=== PATIENT | female | born 1975 | race Caucasian/White ===

== ENCOUNTER 2019-02-04 16:23 | Inpatient (IN) | payer OTHER ==
[~2019-02-04] VITALS: Ht 149.9 cm; Wt 43.5 kg
[2019-02-04 16:26] VITALS: BP 81/45
[2019-02-04 17:22] LABS: HEMATOCRIT 39.4 % (37.0-47.0); HEMOGLOBIN 12.7 gm/dL (12.0-15.0); MCH 28.3 pg (26.0-34.0); MCHC 32.3 g/dL (28.0-37.0); MCV 87.6 fL (80.0-100.0); MPV 6.9 fl. (7.2-11.1); NUCLEATED RBCS 0 /100WBC; PLATELET COUNT* 338 thou/uL (150-400); RDW-CV 13.5 % (10.5-14.5); WBC 29.5 thou/uL (4.0-11.0)
[2019-02-04 17:37] LABS: ANION GAP 8 mmol/L (7-16); BUN 26 mg/dL (7-18); CHLORIDE 103 mmol/L (98-107); CO2 28 mmol/L (21-32); CREATININE 1.2 mg/dL (0.6-1.3); GLUCOSE 107 mg/dL (70-99); SODIUM 139 mmol/L (136-145); TROPONIN-I LEVEL <0.06 ng/mL (<0.06)
[2019-02-04 17:39] LABS: ALKALINE PHOSPHATASE 91 U/L (46-116); NT-PRO BRAIN NAT PEPTIDE 145 pg/mL (<300); SGOT 19 U/L (15-37); SGPT 14 U/L (30-65); TOTAL BILIRUBIN 0.3 mg/dL (<0.1-1.0); TOTAL PROTEIN 6.9 g/dL (6.4-8.2)
[2019-02-04 17:44] LABS: ACETAMINOPHEN 2 ug/mL (10-30); SALICYLATE < 2.8 mg/dL (2.8-20.0)
[2019-02-04 17:46] LABS: ALCOHOL < 10 mg/dL (<10)
[2019-02-04 17:52] LABS: ABSOLUTE LYMPHOCYTES 0.6 thou/uL (0.8-5.3); ABSOLUTE MONOCYTES 0.9 thou/uL (0.0-1.2)
[2019-02-04 17:53] LABS: PLATELET ESTIMATE ADEQUATE
[2019-02-04 18:18] LABS: INFLUENZA A ANTIGEN None Detected (None Detect); INFLUENZA B ANTIGEN None Detected (None Detect)
[2019-02-04 20:13] VITALS: BP 109/71
[2019-02-04 20:40] VITALS: BP 106/66
[2019-02-05] VITALS: BP 85/48
--- NOTE | 2019-02-05 03:28 | NUR ---
ASSUMED CARE OF PT FROM THE ER AT 2030. PT IS UNRESPONSIVE AND VERY SOMNOLENT. PT ALSO APPEARS VERY DEHYDRATED. PT GETTING NS AT 150 ML/HR. PT REQUIRING 2 LITERS O2. PT IS IN SINUS RYTHM ON THE TELEMETRY. PT IS RESTING COMFORTABLY IN BED. RESPIRATIONS ARE EVEN AND NONLABORED. WILL CONTINUE TO MONITOR PT.
[2019-02-05 04:00] VITALS: BP 147/56; BP 90/47
[2019-02-05 04:49] LABS: ABSOLUTE BASOPHILS 0.1 thou/uL (0.0-0.2); ABSOLUTE EOSINOPHILS 0.1 thou/uL (0.0-0.7); ABSOLUTE LYMPHOCYTES 0.7 thou/uL (0.8-5.3); BASOPHILS 0.3 %; EOSINOPHILS 0.2 %; HEMATOCRIT 35.5 % (37.0-47.0); HEMOGLOBIN 11.7 gm/dL (12.0-15.0); LYMPHOCYTES 2.3 %; MCH 28.9 pg (26.0-34.0); MCHC 32.9 g/dL (28.0-37.0); MCV 87.9 fL (80.0-100.0); MONOCYTES 6.6 %; MPV 7.4 fl. (7.2-11.1); NUCLEATED RBCS 0 /100WBC; PLATELET COUNT* 331 thou/uL (150-400); POLYS 90.6 %; RBC 4.04 mil/uL (4.20-5.00); RDW-CV 13.4 % (10.5-14.5); WBC 30.9 thou/uL (4.0-11.0)
[2019-02-05 05:16] LABS: CALCIUM 8.1 mg/dL (8.5-10.1); CREATININE 0.8 mg/dL (0.6-1.3); POTASSIUM 4.6 mmol/L (3.5-5.1)
--- NOTE | 2019-02-05 10:41 | EKG ---
[place] [address] ELECTROCARDIOGRAM REPORT Name: NEVILLE ANN Room: [address] IN [facility]#: [id number] Admission: 02/04/19 Attend Phys: Ankit Manuel MD Discharge: Date of : 71 Report #: [id number] THIS REPORT FOR: //name// [facility] ED Test Date: 2019-02-04 Test Time: 17:09:47 Pat Name: NEVILLE ANN Department: Room: [facility] Gender: F Director Of Women'S Services: LISBETH : 1975 Requested By: Duncan Mane Order Number: [id number] MD: Paxton Ramires Measurements Intervals [place] Rate: 81 P: 76 [place]: 137 QRS: 76 QRSD: 96 T: 7 QT: 382 QTc: 444 Interpretive Statements Sinus rhythm Borderline T wave abnormalities No previous ECG available for comparison Electronically Signed On 02-05-2019 10:40:59 CDT by Paxton Ramires [email or web address] <ELECTRONICALLY SIGNED> By: Paxton Ramires MD, [facility] 02/05/19 1040 08 08 Paxton Ramires MD, FACC /EPI
[2019-02-05 12:32] VITALS: BP 96/53
--- NOTE | 2019-02-05 15:31 | NUR ---
Pt was asleep when CM went to assess, will f/u later
[2019-02-05 16:32] VITALS: BP 101/57
[2019-02-05 19:45] VITALS: BP 118/60
[2019-02-05 20:55] LABS: URINE BILIRUBIN NEGATIVE (Negative); URINE BLOOD 3+ (Negative); URINE CLARITY CLEAR; URINE COLOR YELLOW; URINE GLUCOSE-RANDOM NEGATIVE (Negative); URINE KETONES TRACE (Negative); URINE LEUKOCYTES-REFLEX TRACE (Negative); URINE NITRITE-REFLEX NEGATIVE (Negative); URINE PROTEIN 1+ (Negative); URINE SPECIFIC GRAVITY >= 1.030 (1.005-1.030); URINE UROBILINOGEN 0.2 E.U./dl (0.2-1.0)
[2019-02-05 21:03] LABS: AMP/METHAMP POSITIVE (Negative); BARBITURATES Negative (Negative); BENZODIAZEPINES Negative (Negative); CASTS None Seen /LPF (None Seen); COCAINE Negative (Negative); METHADONE POSITIVE (Negative); OPIATES Negative (Negative); PCP Negative (Negative); SQUAMOUS >10 Many /LPF (0-3); THC Negative (Negative); URINE RBC 3-10 Few /HPF (0-2); URINE WBC-REFLEX 0-5 Rare /HPF (0-5)
[2019-02-05 21:04] LABS: CRYSTALS None Seen /LPF (None Seen)
[2019-02-06] VITALS: BP 104/62
[2019-02-06 04:00] VITALS: BP 112/63
--- NOTE | 2019-02-06 04:48 | NUR ---
PT CARE ASSUMED AT 1930. SAT MAINTAINED IN 3L NC. PT IS CONFUSED AND DROWSY. CALL LIGHT WITHIN REACH AND BED IN LOW POSITION. C/O CHEST PAIN WHILE COUGHING, DENIES PAIN MEDICATION. HOURLY ROUNDING DONE FOR PT SAFETY.
[2019-02-06 08:00] VITALS: BP 126/76
[2019-02-06 10:03] LABS: ABSOLUTE BASOPHILS 0.1 thou/uL (0.0-0.2); ABSOLUTE LYMPHOCYTES 0.6 thou/uL (0.8-5.3); ABSOLUTE NEUTROPHILS 25.2 thou/uL (1.6-8.1); BASOPHILS 0.3 %; EOSINOPHILS 0.1 %; HEMATOCRIT 35.7 % (37.0-47.0); HEMOGLOBIN 11.9 gm/dL (12.0-15.0); LYMPHOCYTES 2.1 %; MCH 28.7 pg (26.0-34.0); MCHC 33.3 g/dL (28.0-37.0); MCV 86.4 fL (80.0-100.0); MONOCYTES 7.1 %; NUCLEATED RBCS 0 /100WBC; PLATELET COUNT* 329 thou/uL (150-400); POLYS 90.4 %; RBC 4.13 mil/uL (4.20-5.00); RDW-CV 13.7 % (10.5-14.5); WBC 27.9 thou/uL (4.0-11.0)
[2019-02-06 10:23] LABS: CALCIUM 8.1 mg/dL (8.5-10.1); CREATININE 0.7 mg/dL (0.6-1.3); POTASSIUM 3.8 mmol/L (3.5-5.1); TOTAL BILIRUBIN 0.4 mg/dL (<0.1-1.0); TOTAL PROTEIN 5.7 g/dL (6.4-8.2)
[2019-02-06 12:00] VITALS: BP 100/63
--- NOTE | 2019-02-06 15:15 | NUR ---
ATTEMPTED TO SPEAK WITH PT. SHE WAS VERY LETHARGIC. O2 AT 10L/HFC. WOULD NOT OPEN EYES BUT BRIEFLY FOR CM. MOTHER AND 3 SISTERS AT BEDSIDE. THEY SAID SHE IS NOT USUALLY LIKE THIS. SHE IS NORMALLY INDEPENDENT. NO USE OF DME. SHE IS SELF EMPLOYED A CAREGIVER. LEFT PACKET FOR THE UNINSURED IN ROOM ON D.
[2019-02-06 16:00] VITALS: BP 99/64
--- NOTE | 2019-02-06 19:19 | NUR ---
TA RESTING IN BED. JANIENET HAS BEEN FEBRILE AT TIMES TODAY, WELL TREATED WITH TYLENOL. PAITNET HAS CONTINUED TO BE DROWSY TODAY BUT IS EASILY AROUSABLE. NEW ABX STARTED TODAY FOR FINDINGS ON CHEST XRAY AND CLINICAL PRESENTATION. HOURLY ROUNDING COMPLETED FOR PATIENT SAFETY.
[2019-02-06 19:50] VITALS: BP 96/50
[2019-02-07] VITALS: BP 94/59
[2019-02-07 04:00] VITALS: BP 98/60
--- NOTE | 2019-02-07 04:42 | NUR ---
PT CARE ASSUMED AT 1930. SAT MAINTAINED IN 7L HFC, CALL LIGHT WITHIN REACH AND BED IN LOW POSITION. PT IS CONFUSED AND DROWSY. DENIES PAIN AND SOB. C/O CHEST PAIN WITH COUGH. HOURLY ROUNDING DONE FOR PT SAFETY.
[2019-02-07 05:00] LABS: HEMOGLOBIN 12.3 gm/dL (12.0-15.0); MCH 28.4 pg (26.0-34.0); MCHC 33.2 g/dL (28.0-37.0); MCV 85.7 fL (80.0-100.0); MPV 7.3 fl. (7.2-11.1); NUCLEATED RBCS 0 /100WBC; PLATELET COUNT* 391 thou/uL (150-400); RBC 4.32 mil/uL (4.20-5.00); RDW-CV 13.1 % (10.5-14.5); WBC 30.8 thou/uL (4.0-11.0)
[2019-02-07 05:12] LABS: CALCIUM 7.8 mg/dL (8.5-10.1); CREATININE 0.8 mg/dL (0.6-1.3)
[2019-02-07 05:19] LABS: PREALBUMIN 5.7 mg/dL (18.0-35.7)
[2019-02-07 07:24] LABS: ABSOLUTE LYMPHOCYTES 1.8 thou/uL (0.8-5.3); ABSOLUTE MONOCYTES 3.4 thou/uL (0.0-1.2); ABSOLUTE NEUTROPHILS 25.6 thou/uL (1.6-8.1); PLATELET ESTIMATE ADEQUATE
[2019-02-07 08:00] VITALS: BP 113/64
[2019-02-07 12:00] VITALS: BP 98/59
--- NOTE | 2019-02-07 12:44 | NUR ---
PT A/O, DROWSY. TELE TRACKING NSR/TACH (100'S-130'S) AND VSS ON 4.5L. DENIES CP, SOA. TOLERATING 4.5L NC- ENCOURAGED IS USE. MULTIPLE FAMILY MEMBERS AT BEDSIDE. EDUCATED ON SAFETY AND PLAN OF CARE. PLEASE SEE ASSESSMENT FOR ADDITIONAL INFORMATION. WILL COTINUE TO MONITOR
[2019-02-07 16:00] VITALS: BP 97/61
[2019-02-07 19:10] VITALS: BP 102/62
--- NOTE | 2019-02-07 22:00 | NUR ---
ASSESSMENT COMPLETED XHARTED. TRACING ER-AT ON MONITOR. PT DENIES PAIN PT CURRENTLY ON 3LPM O2 WITH ADEQAUTE O2 SATS. PT INITIALLY FEBRILE AT START OF SHIFT. PRN TYLENOL GIVEN, TEMP TRANDING DOWN. PT UP TO BR WITH SBA, STEADY GAIT. HOURLY ROUNDING FOR SAFETY. CLWR.
[2019-02-08 00:05] VITALS: BP 90/55
[2019-02-08 03:30] VITALS: BP 93/56
[2019-02-08 05:27] LABS: ABSOLUTE BASOPHILS 0.1 thou/uL (0.0-0.2); ABSOLUTE EOSINOPHILS 0.4 thou/uL (0.0-0.7); ABSOLUTE LYMPHOCYTES 1.4 thou/uL (0.8-5.3); ABSOLUTE MONOCYTES 1.9 thou/uL (0.0-1.2); ABSOLUTE NEUTROPHILS 22.9 thou/uL (1.6-8.1); BASOPHILS 0.4 %; EOSINOPHILS 1.3 %; HEMATOCRIT 35.2 % (37.0-47.0); HEMOGLOBIN 11.7 gm/dL (12.0-15.0); LYMPHOCYTES 5.2 %; MCH 28.4 pg (26.0-34.0); MCHC 33.3 g/dL (28.0-37.0); MCV 85.4 fL (80.0-100.0); MPV 7.4 fl. (7.2-11.1); NUCLEATED RBCS 0 /100WBC; PLATELET COUNT* 440 thou/uL (150-400); POLYS 86.1 %; RBC 4.13 mil/uL (4.20-5.00); RDW-CV 13.5 % (10.5-14.5); WBC 26.6 thou/uL (4.0-11.0)
[2019-02-08 05:37] LABS: ALBUMIN 1.8 g/dL (3.4-5.0); CALCIUM 8.6 mg/dL (8.5-10.1); CREATININE 0.7 mg/dL (0.6-1.3); TOTAL BILIRUBIN 0.4 mg/dL (<0.1-1.0); TOTAL PROTEIN 5.8 g/dL (6.4-8.2)
--- NOTE | 2019-02-08 06:38 | NUR ---
PT REMAINS SR ON MONITOR. NO NEW C/O PAIN,N/V/D, SOA. PT WOULD REMOVE O2 THROUGH THE NIGHT O2 SATS ON RA 89-92%. PT CURRENTLY ON 1.5LPM WITH ADEQUATE O2 SATS. PT WAS ABLE TO HAVE A SMALL BM LAST EVENING.
--- NOTE | 2019-02-08 08:08 | CON ---
[address] [address] CONSULTATION Name: NEVILLE ANN Room: [address] IN .R.#: [id number] Admission: 02/04/19 Attend Phys: Ankit Manuel MD Discharge: Date of : 71 Report #: [id number] THIS REPORT FOR: //name// CC: Ankit Manuel [facility] physician/PCP DATE OF SERVICE: 02/07/2019 ATTENDING PHYSICIAN: Ankit Manuel M.D. REASON FOR EVALUATION: Pneumonitis. HISTORY OF PRESENT ILLNESS: Chart reviewed, the patient examined. This is a 43-year-old woman with history of polysubstance abuse, apparently sick for the last couple of weeks. She was found unresponsive, was treated with Narcan and did awaken. She was found to have temperature elevation to 101.3. She did complain of sore throat, congestion and some difficulty breathing. It is unclear if she had fevers prior to her admission. Apparently, she had some anorexia with poor p.o. intake. Denies significant gastrointestinal-related complaints. It is uncertain about her recent weight. On evaluation, she was found to have a positive drug screen for amphetamine, methamphetamine, and methadone for which she has been prescribed. Initial chest x-ray showed increased density in the right lung base, felt to be more consistent with atelectasis; however, repeat chest x-ray showed a right upper lobe perihilar consolidation and positive rapid strep. Urinalysis was unrevealing. Influenza antigen was negative. She has had markedly elevated white counts in the 30,000 range since admission. Empirically started on broad-spectrum antibiotic therapy including ceftriaxone, Zosyn, vancomycin. At this point, she is quite somnolent. I discussed in detail with the family in terms of additional history. ALLERGIES: None known. MEDICATIONS: Include vancomycin, Zosyn, ceftriaxone, pantoprazole, guaifenesin, enoxaparin, ipratropium and albuterol inhaler. PAST MEDICAL HISTORY: Previous . SOCIAL HISTORY: As described above. Does smoke cigarettes, pretty regular ethanol. FAMILY HISTORY: Noncontributory. REVIEW OF SYSTEMS: Not reliably obtained. PHYSICAL EXAMINATION: [place] [address] CONSULTATION Name: NEVILLE ANN Room: [address]#: [id number] Admission: 02/04/19 Attend Phys: Ankit Manuel MD Discharge: Date of : 71 Report #: [id number] GENERAL: She appears somewhat chronically ill, undernourished, decreased responsiveness, mild to moderate distress. VITAL SIGNS: T-max over 24 hours 101.3, more recently 98.6, pulse 111, respirations 18, blood pressure 113/64. SKIN: Warm, dry. HEENT: Normocephalic. She does open her eyes, appears to have intact extraocular muscles. NECK: Supple. LUNGS: Diminished breath sounds. HEART: Regular, tachycardic. I do not appreciate murmur. ABDOMEN: Soft, nontender, nondistended. EXTREMITIES: No cyanosis, no rashes. GENITOURINARY: Deferred. RECTAL: Deferred. LABORATORY DATA: Initial lactic acid 2.0. Electrolytes: Sodium 139, potassium 4.0, chloride 103, bicarbonate is 28, BUN and creatinine 26 and 1.2, glucose of 107, albumin 3.0, total protein 6.9. LFTs unremarkable. CBC: White count of 29.5, initially H and H 12.7 and 39.4, platelets of 338 and a neutrophilia of 28,000. Positive rapid strep. Influenza antigen for A and B was negative. Urinalysis, 0-5 white cells. Blood cultures are sterile thus far. ASSESSMENT: Pneumonitis in the setting of likely aspiration we know. Definitively she has had group A strep in her throat and I would be concerned about that, and with the persistently high elevated white count there is a question of toxin .net architect. We will check CT of the chest. We will discontinue the Zosyn at this point. Discussed in detail with the family. <ELECTRONICALLY SIGNED> By: Francisco Javier Trujillo MD 02/08/19 0808 [id number] Trujillo MD /nt
[2019-02-08 08:30] VITALS: BP 106/65
[2019-02-08 11:56] VITALS: BP 97/59
[2019-02-08 16:00] VITALS: BP 95/56
--- NOTE | 2019-02-08 19:38 | NUR ---
PT A/O, LETHARGIC. TELE TRACKING NSR AND ALL VSS ON 1.5L. DENIES CP, SOA. ENCOURAGED/INSTRUCTED ON USE OF IS. EDUCATED ON SAFETY AND PLAN OF CARE. PLEASE SEE ASSESSMENT FOR ADDITIONAL INFORMATION. WILL CONTINUE TO MONITOR
[2019-02-08 20:00] VITALS: BP 90/49
[2019-02-09] VITALS: BP 96/63
[2019-02-09 04:44] VITALS: BP 88/50
--- NOTE | 2019-02-09 05:09 | NUR ---
PT LETHARGIC AT TIMES. EASILY AROUSED. MOTHER AT BEDSIDE. UP TO BR WITH STD BY ASSIST. TEMP AT SHIFT CHG 100.6. TYLENOL GIVEN. USING IS. O2 AT 1 LITER. SR. WILL CONTINUE TO MONITOR.
[2019-02-09 05:10] LABS: ABSOLUTE BASOPHILS 0.1 thou/uL (0.0-0.2); ABSOLUTE EOSINOPHILS 0.3 thou/uL (0.0-0.7); ABSOLUTE LYMPHOCYTES 1.3 thou/uL (0.8-5.3); ABSOLUTE MONOCYTES 1.1 thou/uL (0.0-1.2); ABSOLUTE NEUTROPHILS 12.9 thou/uL (1.6-8.1); BASOPHILS 0.3 %; EOSINOPHILS 2.2 %; HEMATOCRIT 33.1 % (37.0-47.0); HEMOGLOBIN 11.1 gm/dL (12.0-15.0); LYMPHOCYTES 8.3 %; MCH 28.5 pg (26.0-34.0); MCHC 33.5 g/dL (28.0-37.0); MCV 85.1 fL (80.0-100.0); MONOCYTES 7.2 %; NUCLEATED RBCS 0 /100WBC; PLATELET COUNT* 465 thou/uL (150-400); RBC 3.88 mil/uL (4.20-5.00); RDW-CV 13.3 % (10.5-14.5); WBC 15.8 thou/uL (4.0-11.0)
[2019-02-09 05:50] LABS: ALBUMIN 1.8 g/dL (3.4-5.0); CREATININE 0.6 mg/dL (0.6-1.3); POTASSIUM 3.5 mmol/L (3.5-5.1); PREALBUMIN 6.4 mg/dL (18.0-35.7); TOTAL BILIRUBIN 0.4 mg/dL (<0.1-1.0); TOTAL PROTEIN 6.1 g/dL (6.4-8.2)
[2019-02-09 08:00] VITALS: BP 99/66
[2019-02-09 12:35] VITALS: BP 104/68
--- NOTE | 2019-02-09 12:52 | NUR ---
ASSUMED PT CARE AT 0730, LYING IN BED. AOX4, SBA, 02 SAT 98% 1L NC. PT FAMILY IN THE BEDSIDE. PT COMPLAINS OF SORE THROAT. PT GOAL IS SAFETY, EFFECTIVE BREATHING, ISOLATION PRECAUTION. 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 WILL CONTINUE TO MONITOR.
[2019-02-09 16:00] VITALS: BP 91/55
--- NOTE | 2019-02-09 18:54 | NUR ---
PT AOX4, 02 SAT AT 90'S 1L NC, SBA. PT ON CONTACT ISOLATION. PT FAMILY AT BEDSIDE . PT COMPLAINS OF SORE THROAT, COUGHING, PT USE INCENTIVE SPIROMETRY, PT FEBRILE AT TIMES, WBC ELEVATED. MEDS GIVEN PER JAN. REGULAR DIET, LAST BM 02/07/19. 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 CALL LIGHT AND BELONGINGS WITHIN REACH. HOURLY ROUNDING, REPOSITION SELF, WILL CONTINUE TO MONITOR.
--- NOTE | 2019-02-09 19:56 | NUR ---
I HAVE REVIEWED AND AGREE WITH THE CHARTING OF ASAD ESQUIVEL ON 02/09/19
[2019-02-09 20:00] VITALS: BP 100/63
[2019-02-10] VITALS: BP 95/58
[2019-02-10 04:00] VITALS: BP 82/44
[2019-02-10 05:27] LABS: ABSOLUTE EOSINOPHILS 0.3 thou/uL (0.0-0.7); ABSOLUTE LYMPHOCYTES 1.6 thou/uL (0.8-5.3); ABSOLUTE MONOCYTES 1.2 thou/uL (0.0-1.2); ABSOLUTE NEUTROPHILS 11.5 thou/uL (1.6-8.1); BASOPHILS 0.3 %; EOSINOPHILS 2.2 %; HEMATOCRIT 33.2 % (37.0-47.0); HEMOGLOBIN 11.1 gm/dL (12.0-15.0); MCH 28.5 pg (26.0-34.0); MCHC 33.5 g/dL (28.0-37.0); MCV 84.9 fL (80.0-100.0); MONOCYTES 8.1 %; NUCLEATED RBCS 0 /100WBC; PLATELET COUNT* 510 thou/uL (150-400); POLYS 78.4 %; RBC 3.91 mil/uL (4.20-5.00); RDW-CV 13.5 % (10.5-14.5); WBC 14.7 thou/uL (4.0-11.0)
[2019-02-10 05:53] LABS: CALCIUM 8.4 mg/dL (8.5-10.1); CREATININE 0.7 mg/dL (0.6-1.3); POTASSIUM 3.9 mmol/L (3.5-5.1)
[2019-02-10 06:07] LABS: PREALBUMIN 8.8 mg/dL (18.0-35.7)
[2019-02-10 08:45] VITALS: BP 80/52
--- NOTE | 2019-02-10 09:20 | NUR ---
ASSUMED PT. CARE AND RECEIVED REPORT AT 0730. PT SLEEPING, AROUSES EASILY, ORIENTED X4. BP SOFT AT 80/52, OTHERWISE VSS. MONITOR ON TRACING SR. PT DENIES CURRENT PAIN, C/O OF MINOR NAUSEA. PT. ENCOURAGED TO WAKE AND EAT BREAKFAST. PT. STATES FRUSTRATION WITH NOT BEING ABLE TO REST SHE NEEDS. PT. MOTHER AT BEDSIDE, RETURNING HOME TO [facility] TODAY. CALL LIGHT IN REACH, WILL CONTINUE WITH PLAN OF CARE.
[2019-02-10 14:30] VITALS: BP 100/64
[2019-02-10 15:25] VITALS: BP 90/62
[2019-02-10 20:00] VITALS: BP 100/60
[2019-02-11] VITALS: BP 80/46
[2019-02-11 03:45] VITALS: BP 86/49
--- NOTE | 2019-02-11 04:46 | NUR ---
PT CARE ASSUMED AT 1930. SAT MAINTAINED IN RA. ALERT AND ORIENTED X4. CALL LIGHT WITHIN REACH AND BED IN MY POSITION. C/O PAIN, MEDICATION GIVEN PER EMAR. DENIES SOB. HOURLY ROUNDING DONE FOR PT SAFETY.
[2019-02-11 05:18] LABS: HEMATOCRIT 33.8 % (37.0-47.0); HEMOGLOBIN 11.1 gm/dL (12.0-15.0); MCH 27.9 pg (26.0-34.0); MCHC 32.8 g/dL (28.0-37.0); MPV 6.5 fl. (7.2-11.1); NUCLEATED RBCS 0 /100WBC; RBC 3.98 mil/uL (4.20-5.00); RDW-CV 13.6 % (10.5-14.5); WBC 15.8 thou/uL (4.0-11.0)
[2019-02-11 05:27] LABS: PLATELET COUNT* 624 thou/uL (150-400)
[2019-02-11 05:38] LABS: CALCIUM 8.5 mg/dL (8.5-10.1); CREATININE 0.7 mg/dL (0.6-1.3); POTASSIUM 3.9 mmol/L (3.5-5.1)
[2019-02-11 06:54] LABS: ABSOLUTE EOSINOPHILS 0.2 thou/uL (0.0-0.7); ABSOLUTE LYMPHOCYTES 2.2 thou/uL (0.8-5.3); ABSOLUTE MONOCYTES 1.1 thou/uL (0.0-1.2); ABSOLUTE NEUTROPHILS 12.3 thou/uL (1.6-8.1); METAMYELOCYTES 2 %
[2019-02-11 06:55] LABS: ANISOCYTOSIS 1+; PLATELET ESTIMATE INCREASED
[2019-02-11 08:11] VITALS: BP 96/61
--- NOTE | 2019-02-11 09:36 | NUR ---
assumed pt care at 0730, full assesment done as charted. pt a/o x4, drowsy this am. c/o vega, tylenol given. pt states she feels ready to go home today. pt reports increased activity and that she has been eating more. pt encouraged to continue these things and to use her IS. pt verbalized understanding. pt remains on isolation. uses call light approprialty, will continue to monitor.
[2019-02-11] MEDS ORDERED: VENTOLIN HFA 1818 GM INH (10:09)
[2019-02-11] MEDS ORDERED: ZYVOX600 MG PO (10:09)
[2019-02-11] MEDS ORDERED: CEFDINIR300 MG PO (10:09)
[2019-02-11] MEDS ORDERED: MUCINEX600 MG PO (10:09)
--- NOTE | 2019-02-11 10:43 | NUR ---
Pt discharging to home today, Pt was asleep, spoke with Pt's father in room. Provided Pt's father with coupons from [employer] for Pt's meds that she [place] need at [place], father states that the prices are affordable. CM also provided father with info for Pt to establish a PCP at the [facility]. CM informed father, that Pt will need to establish care with a PCP, then arrange for the cxr, which will likely need to be done at [place], d/t Pt not having health insurance. Father voiced understanding. Updated nurse.
[2019-02-11 11:56] VITALS: BP 96/61
--- NOTE | 2019-02-11 17:27 | NUR ---
P.T. ORDERS RECEIVED 02/10/19. PT DISCHARGED 02/11/19 PRIOR TO COMPLETION OF P.T. EVAL.
== END 2019-02-11 13:05 | disposition home or self-care (01) | DRG 871 ==
LOC: M.ERS 16:23 → M.TBA-ER 18:11 → M.2W 18:11
PROVIDERS: Emergency Medicine Emergency Medical Services; ADMIT Internal Medicine
DX: A41.02 Sepsis due to Methicillin resistant Staphylococcus aureus (principal); J96.00 Acute respiratory failure, unspecified whether with hypoxia or hypercapnia; G92 Toxic encephalopathy; J69.0 Pneumonitis due to inhalation of food and vomit; J02.0 Streptococcal pharyngitis; F17.210 Nicotine dependence, cigarettes, uncomplicated; E86.0 Dehydration; F19.90 Other psychoactive substance use, unspecified, uncomplicated; Z28.21 Immunization not carried out because of patient refusal; Z79.899 Other long term (current) drug therapy